=== PATIENT | female | born 1985 | race African-American/Black ===

== ENCOUNTER 2020-08-16 01:41 | Emergency (ER) | payer OTHER ==
[2020-08-16] MEDS ORDERED: ALBUTEROL SO4 2.5/IPRATROPIUM 0.5 INH SOL 3 ML VIAL.NEB. NEB ONE (01:45)
[2020-08-16] MEDS ORDERED: MAGNESIUM SULF 50% (8.12 MEQ/2 ML-1 GM VIAL) IVPB ONE (01:45)
[2020-08-16] MEDS ORDERED: DEXAMETHASONE LIQUID 0.5 MG/5 ML PO ONE (01:45)
[2020-08-16] MEDS ORDERED: DEXAMETHASONE SOD PHOSPHATE 10 MG/1 ML VIAL ONE (01:45)
[2020-08-16] MEDS ORDERED: MAGNESIUM SULFATE IN WATER 2 GM/50 ML IVPB IVPB ONE (02:09)
[2020-08-16 02:23] VITALS: BMI 30.2
[2020-08-16 02:31] LABS: BASO % 0.6 % (0-2.0); HEMATOCRIT 38.3 % (32.4-45.2); HEMOGLOBIN 12.4 GM/dL (10.7-15.3); LYMPH % 26.9 % (8-40); MCH 23.9 pg (25.7-33.7); MCHC 32.2 g/dl (32.0-36.0); MEAN CELL VOLUME 74.1 fl (80-96); MEAN PLT VOLUME 9.3 fl (7.5-11.1); MONO % 9.4 % (3.8-10.2); NEUT % 59.1 % (42.8-82.8); PLATELET COUNT 258 K/MM3 (134-434); RBC 5.17 M/mm3 (3.60-5.2); RDW 14.6 % (11.6-15.6); WHITE BLOOD COUNT 5.9 K/mm3 (4.0-10.0)
[2020-08-16 02:45] VITALS: TEMP 98.1
[2020-08-16] MEDS ORDERED: amLODIPine BESYLATE 5 MG TABLET (FP) PO ONE (02:46)
[2020-08-16 02:49] LABS: ALBUMIN 4.6 g/dl (3.4-5.0); BLOOD UREA NITROGEN 9.8 mg/dL (7-18)
[2020-08-16 02:52] LABS: CREATININE 0.9 mg/dL (0.55-1.3)
[2020-08-16 02:54] LABS: BILIRUBIN,TOTAL 0.4 mg/dL (0.2-1); TOT PROT 8.7 g/dl (6.4-8.2)
[2020-08-16] MEDS ORDERED: amLODIPine BESYLATE 5 MG TABLET (FP) ONE (03:10)
[2020-08-16 04:00] VITALS: BP 146/78; PULSE 99
== END 2020-08-16 04:11 | disposition home or self-care (01) ==
LOC: JER 01:41
PROC: 3E0F7GC Introduction of Other Therapeutic Substance into Respiratory Tract, Via Natural or Artificial Opening (ICD-10-PCS; principal; 2020-08-16)
PROC: 3E033NZ Introduction of Analgesics, Hypnotics, Sedatives into Peripheral Vein, Percutaneous Approach (ICD-10-PCS; 2020-08-16)
DX: R06.02 Shortness of breath (principal)
CPT/HCPCS: 36415; 71045-TC-FY; 80053; 84703; 85025; 99285-25; C9803; U0003; U0005